=== PATIENT | female | born 1950 | race African-American/Black ===

== ENCOUNTER 2017-09-04 07:38 | Day surgery (SDC) | payer OTHER, MEDICAID ==
[~2017-09-04 07:38] MED LIST: NS 1000 ML 1,000 ML ONE
[2017-09-04] MEDS ORDERED: ANCEF 1 GM IV PREMIX* 1 GM/50 ML BAG IV ONE (07:39)
[2017-09-04] MEDS ORDERED: FENTANYL INJ 100 mcg ONE (08:08)
[2017-09-04] MEDS ORDERED: XYLOCAINE 1 % (PLAIN) ONE (08:11)
[2017-09-04] MEDS ORDERED: MARCAINE 0.25% INJ ONE (08:11)
[2017-09-04] MEDS ORDERED: XYLOCAINE 1% and EPINEPHRINE 1:100,000 ONE (08:21)
[2017-09-04] MEDS ORDERED: NS IRRIGATION 1000 ML 1,000 ML IR ONE (08:53)
--- NOTE | 2017-09-04 09:06 | OR.GENERIC ---
Post-Op Note Generic - Post-Op Note Operative Report: Date of Operation: September 04, 2017 Pre-Operative Diagnosis: Recurrent right breast abscess. Post-Operative Diagnosis: Recurrent right breast abscess. Procedure: Incision and drainage of recurrent right breast abscess (complex) with open breast biopsy. Surgeon: Arvin Bill MD Anesthesia: Monitored anesthesia care and local. Specimens: 1. Wound culture. 2. Right breast tissue at site of recurrent abscess. Estimated blood loss: Minimal. Complications: None Summary: The patient is a 67 year old female who presented with a recurrent right breast abscess. The abscess has been drained multiple times by her primary care physician. The patient has also undergone multiple rounds of antibiotics with recurrence. An ultrasound demonstrated a fluid collection consistent with an abscess. The patient was offered incision and drainage. The risk and benefits of the procedure including difficulty with anesthesia, bleeding, infection, scar formation, delayed healing, as well as recurrence were discussed with the patient. The patient understood these risks and requested the procedure. On September 04, 2017, the patient was brought to the operative theatre. A time out was performed verifying the patient and the procedure. After satisfactory induction of monitored anesthesia care, right breast was prepped with Chloraprep and draped in the usual fashion. Local anesthetic was infiltrated around the area of induration. This was at the infra-mammary fold at approximately 7 oclock. A small core of skin was removed sharply. The abscess cavity was entered bluntly. Minimal purulent drainage was noted. A culture was obtained and sent to microbiology. All loculations were disrupted bluntly. The abscess cavity was copiously irrigated. Breast tissue deep to the abscess cavity was biopsied sharply. This was sent to pathology. Bleeding was controlled using electrocautery. Next, the wound was packed with Iodoform. A sterile dressing was placed. The patient was awakened and taken to the recovery room in stable condition. There were no complications. All counts were correct.
[2017-09-04] MEDS ORDERED: DIPRIVAN VIAL ONE (09:17)
[2017-09-04] MEDS ORDERED: VERSED ONE (09:17)
[2017-09-04 09:42] VITALS: BP 153/90
== END 2017-09-04 09:50 | disposition home or self-care (01) ==
LOC: SURG1 07:38
PROVIDERS: ATTEND Student in an Organized Health Care Education/Training Program
PROC: 0J960ZX Drainage of Chest Subcutaneous Tissue and Fascia, Open Approach, Diagnostic (ICD-10-PCS; principal; 2017-09-04 10:45)
DX: N61.1 Abscess of the breast and nipple (principal); B96.89 Other specified bacterial agents as the cause of diseases classified elsewhere
CPT/HCPCS: 87070; 87075; 87077; 87186; 87205; A4222; S0020; J0690; J2001; J2250; J3010; J3490